=== PATIENT | female | born 1945 | race Caucasian/White ===

== ENCOUNTER 2021-11-04 14:03 | Inpatient (IN) | payer OTHER ==
[~2021-11-04] VITALS: Ht 154.9 cm; Wt 63.8 kg
[2021-11-04 14:42] VITALS: BP 141/50
[2021-11-04 20:33] LABS: BASO % 0.4 % (0.0-1.0); EOS % 0.6 % (1.0-4.0); HEMATOCRIT 33.5 % (37.0-47.0); LYMPH # 1.4 10*3/uL (1.3-4.4); LYMPH % 28.1 % (27.0-41.0); MEAN CELL VOLUME 90.3 fl (81.0-99.0); MEAN CORPUSCULAR HGB 28.8 pg (27.0-31.0); MEAN CORPUSCULAR HGB CONC 31.9 g/dl (33.0-37.0); MEAN PLATELET VOLUME 10.5 fl (9.6-12.3); MONO # 0.4 10*3/uL (0.1-1.0); MONO % 7.9 % (3.0-9.0); NEUT % 62.8 % (47.0-73.0); PLATELET COUNT AUTOMATED 190 10*3/uL (130-400); RED BLOOD COUNT 3.71 10*6/uL (4.10-5.10); RED CELL DISTRI WIDTH 15.9 % (0-14.5); WHITE BLOOD COUNT 4.8 10*3/uL (4.8-10.8)
[2021-11-04 20:53] LABS: ALBUMIN 3.4 gm/dl (3.1-4.5); CREATININE 1.3 mg/dL (0.55-1.02); POTASSIUM 4.1 mmol/L (3.5-5.1); TOTAL PROTEIN 6.9 gm/dL (6.4-8.2)
[2021-11-04] MEDS ORDERED: LISINOPRIL20 MG PO (21:16)
[2021-11-04] MEDS ORDERED: ELIQUIS5 M1 PO (21:16)
[2021-11-04] MEDS ORDERED: LEVOTHYROXINE100 MC1 PO (21:16)
[2021-11-04] MEDS ORDERED: FLECAINIDE ACET50 M1 PO (21:17)
[2021-11-05 02:17] VITALS: BP 159/49
[2021-11-05 06:07] LABS: CREATININE 1.33 mg/dL (0.55-1.02); POTASSIUM 4.1 mmol/L (3.5-5.1)
[2021-11-05 06:13] LABS: THYROID STIM HORMONE (HS) 1.12 uIU/ml (0.358-4.75)
[2021-11-05 06:16] LABS: BASO % 0.5 % (0.0-1.0); EOS # 0.1 10*3/uL (0.0-0.4); EOS % 1.4 % (1.0-4.0); HEMATOCRIT 30.1 % (37.0-47.0); LYMPH # 1.5 10*3/uL (1.3-4.4); MEAN CELL VOLUME 90.7 fl (81.0-99.0); MEAN CORPUSCULAR HGB 28.6 pg (27.0-31.0); MEAN CORPUSCULAR HGB CONC 31.6 g/dl (33.0-37.0); MEAN PLATELET VOLUME 10.5 fl (9.6-12.3); MONO # 0.4 10*3/uL (0.1-1.0); MONO % 9.1 % (3.0-9.0); NEUT # 2.2 10*3/uL (2.3-7.9); NEUT % 53.8 % (47.0-73.0); PLATELET COUNT AUTOMATED 173 10*3/uL (130-400); RED BLOOD COUNT 3.32 10*6/uL (4.10-5.10); RED CELL DISTRI WIDTH 15.5 % (0-14.5); WHITE BLOOD COUNT 4.2 10*3/uL (4.8-10.8)
[2021-11-05 07:13] VITALS: BP 136/48
[2021-11-05 08:34] LABS: VITAMIN D, 25-HYDROXY 64.9 ng/mL (30-100)
[2021-11-05 17:33] VITALS: BP 144/40
[2021-11-05 20:54] VITALS: BP 162/43
[2021-11-05 23:38] VITALS: BP 124/50
[2021-11-06] VITALS (14 sets, daily range): BP systolic 121–155; BP diastolic 31–50
[2021-11-06 04:35] LABS: BASO % 0.7 % (0.0-1.0); EOS # 0.1 10*3/uL (0.0-0.4); EOS % 1.7 % (1.0-4.0); HEMATOCRIT 31.5 % (37.0-47.0); LYMPH # 1.3 10*3/uL (1.3-4.4); LYMPH % 31.6 % (27.0-41.0); MEAN CELL VOLUME 91.6 fl (81.0-99.0); MEAN CORPUSCULAR HGB 28.5 pg (27.0-31.0); MEAN CORPUSCULAR HGB CONC 31.1 g/dl (33.0-37.0); MEAN PLATELET VOLUME 9.9 fl (9.6-12.3); MONO # 0.3 10*3/uL (0.1-1.0); NEUT # 2.3 10*3/uL (2.3-7.9); NEUT % 57.8 % (47.0-73.0); PLATELET COUNT AUTOMATED 159 10*3/uL (130-400); RED BLOOD COUNT 3.44 10*6/uL (4.10-5.10); RED CELL DISTRI WIDTH 15.6 % (0-14.5)
[2021-11-06 05:05] LABS: ALBUMIN 2.7 gm/dl (3.1-4.5); CREATININE 1.23 mg/dL (0.55-1.02); TOTAL PROTEIN 5.8 gm/dL (6.4-8.2)
[2021-11-07 00:15] VITALS: BP 140/52
[2021-11-07 06:42] LABS: CREATININE 1.39 mg/dL (0.55-1.02); POTASSIUM 4.9 mmol/L (3.5-5.1); TOTAL PROTEIN 6.4 gm/dL (6.4-8.2)
[2021-11-07 06:51] LABS: HEMATOCRIT 30.4 % (37.0-47.0); LYMPH % 14.6 % (27.0-41.0); MEAN CORPUSCULAR HGB 29.4 pg (27.0-31.0); MEAN CORPUSCULAR HGB CONC 33.2 g/dl (33.0-37.0); MEAN PLATELET VOLUME 10.9 fl (9.6-12.3); MONO # 0.4 10*3/uL (0.1-1.0); MONO % 5.9 % (3.0-9.0); NEUT # 5.2 10*3/uL (2.3-7.9); NEUT % 79.2 % (47.0-73.0); RED BLOOD COUNT 3.44 10*6/uL (4.10-5.10); WHITE BLOOD COUNT 6.6 10*3/uL (4.8-10.8)
[2021-11-07 06:52] LABS: MEAN CELL VOLUME 88.4 fl (81.0-99.0); PLATELET COUNT AUTOMATED 207 10*3/uL (130-400)
[2021-11-07 08:00] VITALS: BP 148/44
[2021-11-07 12:00] VITALS: BP 127/39
[2021-11-07 16:00] VITALS: BP 155/47
[2021-11-07 20:00] VITALS: BP 135/45
[2021-11-08] VITALS: BP 134/56
[2021-11-08 06:35] LABS: BASO % 0.3 % (0.0-1.0); EOS % 0.5 % (1.0-4.0); HEMATOCRIT 27.2 % (37.0-47.0); LYMPH # 1.7 10*3/uL (1.3-4.4); LYMPH % 27.2 % (27.0-41.0); MEAN CELL VOLUME 89.2 fl (81.0-99.0); MEAN CORPUSCULAR HGB 29.2 pg (27.0-31.0); MEAN CORPUSCULAR HGB CONC 32.7 g/dl (33.0-37.0); MEAN PLATELET VOLUME 11.5 fl (9.6-12.3); MONO # 0.6 10*3/uL (0.1-1.0); MONO % 9.8 % (3.0-9.0); NEUT # 3.9 10*3/uL (2.3-7.9); NEUT % 61.9 % (47.0-73.0); PLATELET COUNT AUTOMATED 171 10*3/uL (130-400); RED BLOOD COUNT 3.05 10*6/uL (4.10-5.10); RED CELL DISTRI WIDTH 15.7 % (0-14.5); WHITE BLOOD COUNT 6.3 10*3/uL (4.8-10.8)
[2021-11-08 06:53] LABS: CREATININE 1.35 mg/dL (0.55-1.02)
[2021-11-08 08:00] VITALS: BP 127/39
[2021-11-08 12:00] VITALS: BP 131/34
[2021-11-08 16:00] VITALS: BP 119/36
[2021-11-08 20:00] VITALS: BP 131/38
[2021-11-09 00:26] VITALS: BP 147/45
[2021-11-09 07:04] LABS: BASO % 0.2 % (0.0-1.0); EOS # 0.1 10*3/uL (0.0-0.4); EOS % 1.9 % (1.0-4.0); LYMPH # 1.8 10*3/uL (1.3-4.4); MEAN CELL VOLUME 90.9 fl (81.0-99.0); MEAN CORPUSCULAR HGB 29.2 pg (27.0-31.0); MEAN CORPUSCULAR HGB CONC 32.1 g/dl (33.0-37.0); MEAN PLATELET VOLUME 10.4 fl (9.6-12.3); MONO # 0.4 10*3/uL (0.1-1.0); MONO % 7.4 % (3.0-9.0); NEUT # 3.5 10*3/uL (2.3-7.9); NEUT % 60.2 % (47.0-73.0); PLATELET COUNT AUTOMATED 157 10*3/uL (130-400); RED BLOOD COUNT 3.19 10*6/uL (4.10-5.10); RED CELL DISTRI WIDTH 15.9 % (0-14.5); WHITE BLOOD COUNT 5.8 10*3/uL (4.8-10.8)
[2021-11-09 07:17] LABS: CREATININE 1.16 mg/dL (0.55-1.02); POTASSIUM 4.5 mmol/L (3.5-5.1)
[2021-11-09 08:00] VITALS: BP 152/60
[2021-11-09 12:00] VITALS: BP 140/51
[2021-11-09] MEDS ORDERED: VITAMIN D350 MC2 PO (12:40)
[2021-11-09] MEDS ORDERED: HYDROCODONE-AC1 EAC1 PO (12:41)
[2021-11-09 16:00] VITALS: BP 148/46
[2021-11-09 20:00] VITALS: BP 170/44
[2021-11-10] VITALS: BP 135/41
[2021-11-10 08:00] VITALS: BP 132/52
== END 2021-11-10 13:25 | disposition home or self-care (01) | DRG 480 ==
LOC: ED 14:03 → EDHOLD 20:03 → 5E 11-06 13:45
PROVIDERS: Emergency Medicine; Hospitalist; Internal Medicine; Orthopaedic Surgery; Student in an Organized Health Care Education/Training Program; ADMIT Internal Medicine; ATTEND Internal Medicine
PROC: 0QS706Z Reposition Left Upper Femur with Intramedullary Internal Fixation Device, Open Approach (ICD-10-PCS; principal; 2021-11-06)
PROC: 3E0T3BZ Introduction of Anesthetic Agent into Peripheral Nerves and Plexi, Percutaneous Approach (ICD-10-PCS; 2021-11-06)
DX: S72.145A Nondisplaced intertrochanteric fracture of left femur, initial encounter for closed fracture (principal); N17.0 Acute kidney failure with tubular necrosis; E44.0 Moderate protein-calorie malnutrition; Z96.653 Presence of artificial knee joint, bilateral; D64.9 Anemia, unspecified; I48.0 Paroxysmal atrial fibrillation; E03.9 Hypothyroidism, unspecified; R00.1 Bradycardia, unspecified; E04.9 Nontoxic goiter, unspecified; I10 Essential (primary) hypertension; R73.9 Hyperglycemia, unspecified; Z88.0 Allergy status to penicillin; Z90.49 Acquired absence of other specified parts of digestive tract; Z79.01 Long term (current) use of anticoagulants; Z79.899 Other long term (current) drug therapy; Z68.26 Body mass index [BMI] 26.0-26.9, adult; Y93.89 Activity, other specified; Y92.89 Other specified places as the place of occurrence of the external cause; Y99.8 Other external cause status

== ENCOUNTER → 2021-12-04 | Outpatient (CLI) | payer OTHER ==
[~2021-12-04] MED LIST: ELIQUIS5 M1 PO; FLECAINIDE ACET50 M1 PO; HYDROCODONE-AC1 EAC1 PO; LEVOTHYROXINE100 MC1 PO; LISINOPRIL20 MG PO; VITAMIN D350 MC2 PO
== END | disposition home or self-care (01) ==
LOC: ORTHO 02:17
PROVIDERS: ATTEND Orthopaedic Surgery
DX: S72.145D Nondisplaced intertrochanteric fracture of left femur, subsequent encounter for closed fracture with routine healing (principal); X58.XXXD Exposure to other specified factors, subsequent encounter

== ENCOUNTER → 2022-01-18 | Outpatient (CLI) | payer OTHER | END | disposition home or self-care (01) | LOC: ORTHO 00:28 | PROVIDERS: ATTEND Orthopaedic Surgery | DX: S72.145D Nondisplaced intertrochanteric fracture of left femur, subsequent encounter for closed fracture with routine healing (principal); X58.XXXD Exposure to other specified factors, subsequent encounter ==